=== PATIENT | male | born 1985 | race Caucasian/White ===

== ENCOUNTER 2020-09-13 01:53 | Emergency (ER) | payer OTHER ==
[~2020-09-13] VITALS: Ht 180.3 cm; Wt 80.4 kg
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
[2020-09-13] MEDS ORDERED: KETOROLAC 30 MG/1 ML ONE (02:21)
[2020-09-13] MEDS ORDERED: ONDANSETRON 2MG/ML, 2ML ONE (02:21)
[2020-09-13] MEDS ORDERED: HYDROmorphone 1 MG/ML, 1ML INJ ONE ×2 (02:21→03:24)
[2020-09-13] MEDS ORDERED: KETOROLAC 30 MG/1 ML IVPush ONE (02:30)
[2020-09-13] MEDS ORDERED: ONDANSETRON 2MG/ML, 2ML IVPush ONE (02:30)
[2020-09-13] MEDS ORDERED: HYDROmorphone 1 MG/ML, 1ML INJ IV ONE ×2 (02:30→03:30)
[2020-09-13] MEDS ORDERED: SODIUM CHLORIDE FLUSH 10ML SYR IVF ONE (02:30)
--- NOTE | 2020-09-13 02:39 | NUR ---
pt tolerated medications well.
--- NOTE | 2020-09-13 03:00 | NUR ---
pt resting in bed stating he is feeling a lot better. pt is not moaning like he was earlier from pain. pt given ice pack, ice water and blankets. at bedside
[2020-09-13] MEDS ORDERED: KETAMINE 10 MG/ML, 20ML ONE (03:21)
[2020-09-13] MEDS ORDERED: KETAMINE 10 MG/ML, 20ML IV ONE ×2 (03:30→04:00)
--- NOTE | 2020-09-13 03:42 | NUR ---
pt states his pain is gone as of right now
[2020-09-13] MEDS ORDERED: OXYcodone/APAP 10/325MG TABLET PO ONE (04:00)
--- NOTE | 2020-09-13 04:15 | NUR ---
pt stating pain 05/24. rpeorts he does not need anything fo pain as of right now. tadeo. trang. lisatm
--- NOTE | 2020-09-13 04:49 | NUR ---
pt sleeping comfortably in bed. eyes closed. vss. nadn. at bedside. vss. connected to monitors. wctm breathing even and unlabored
[2020-09-13 05:42] VITALS: BP 112/61
[2020-09-13] MEDS ORDERED: ONDANSETRON ODT 8 MG ONE (05:42)
[2020-09-13] MEDS ORDERED: ONDANSETRON ODT 8 MG PO ONE (06:00)
== END 2020-09-13 05:59 | disposition home or self-care (01) ==
LOC: ED 05:34
DX: M25.512 Pain in left shoulder (principal); M25.511 Pain in right shoulder
CPT/HCPCS: 96374; 96375; 96376; 99284; J1170; J1885; J2405; Q0162